=== PATIENT | male | born 1955 | race Caucasian/White ===

== ENCOUNTER 2022-10-24 09:27 | Emergency (ER) | payer OTHER ==
[~2022-10-24] VITALS: Ht 167.6 cm; Wt 81.8 kg
[2022-10-24 10:22] VITALS: TEMP 98
[2022-10-24 11:19] LABS: COVID AG,FIA SOURCE NASOPHARYNGEAL
[2022-10-24 11:20] LABS: BASOPHILS % (AUTO) 1.3 % (0.0-2.0); EOSINOPHILS % (AUTO) 2.4 % (1.0-6.0); HEMATOCRIT 43.9 % (41-53); HEMOGLOBIN 14.8 g/dL (13.5-17.5); LYMPHOCYTES # (AUTO) 1.2 K/uL (1.0-4.8); LYMPHOCYTES % (AUTO) 18.4 % (22.0-44.0); MEAN CORPUSCULAR HEMOGLOBIN 32.7 pg (26.0-34.0); MEAN CORPUSCULAR HGB CONC 33.7 G/dL (31.0-37.0); MEAN CORPUSCULAR VOLUME 97 fL (80-100); MONOCYTES # (AUTO) 0.4 K/uL (0.1-1.0); MONOCYTES % (AUTO) 6.9 % (2.0-9.0); NEUTROPHILS # (AUTO) 4.6 K/uL (1.8-7.7); PLATELET COUNT (AUTO) 240 K/uL (150-450); RED BLOOD CELL COUNT(AUTO) 4.53 MIL/uL (4.50-5.90)
[2022-10-24 11:51] LABS: ANION GAP 9 mmol/L (8-16); CALCIUM, TOTAL 8.9 mg/dL (8.8-10.5); CARBON DIOXIDE 27 mmol/L (22-29); CHLORIDE 105 mmol/L (98-107); CREATININE 0.77 mg/dL (0.60-1.30); GLOMERULAR FILTR. RATE CALC > 60 mL/min (>60); GLUCOSE,RANDOM 104 mg/dL (70-110); SODIUM SERUM 141 mmol/L (136-145)
[2022-10-24 11:52] LABS: AMMONIA 18 umol/L (11-32)
[2022-10-24 11:57] LABS: ALANINE AMINOTRANSFERASE 34 U/L (12-78); ALBUMIN 3.1 g/dL (3.4-5.0); ALKALINE PHOSPHATASE 59 U/L (46-116); ASPARTATE AMINOTRANSFERASE 57 U/L (15-37); BILIRUBIN,TOTAL 0.5 mg/dL (0.1-1.0); TOTAL PROTEIN, SERUM 6.4 g/dL (6.4-8.2)
[2022-10-24] MEDS ORDERED: AmLODIPine BESYLATE 5 MG TABLET PO ONE (13:30)
[2022-10-24] MEDS ORDERED: HYDROCHLOROTHIAZIDE 25 MG TABLET PO ONE (13:30)
[2022-10-24 13:36] VITALS: BP 149/90; PULSE 59; RESP 18
== END 2022-10-24 16:54 | disposition home or self-care (01) ==
LOC: EMS 09:28
DX: F03.90 Unspecified dementia, unspecified severity, without behavioral disturbance, psychotic disturbance, mood disturbance, and anxiety (principal); F79 Unspecified intellectual disabilities; I10 Essential (primary) hypertension; R00.1 Bradycardia, unspecified; I51.7 Cardiomegaly; Z98.890 Other specified postprocedural states; Z20.822 Contact with and (suspected) exposure to COVID-19
CPT/HCPCS: 99285; 70450; 71045; 87426; 80053; 82140; 84484; 85025; 93005; G0480